=== PATIENT | female | born 1955 | race American Indian/Alaskan Native ===

== ENCOUNTER 2016-08-31 12:04 | Outpatient (CLI) | payer MEDICARE ==
[2016-08-31 12:21] LABS: Hematocrit 35.5 % (30.3-42.9); Hemoglobin 11.7 gm/dl (10.1-14.3); Mean Corpuscular HGB Conc 33 % (30-34); Mean Corpuscular Hemoglobin 27 pg (28-32); Mean Corpuscular Volume 82 fl (79-97); Platelet Count 242 K/mm3 (140-440); Red Blood Count 4.35 M/mm3 (3.65-5.03); Red Cell Distribution Width 14.4 % (13.2-15.2); White Blood Count 3.9 K/mm3 (4.5-11.0)
[2016-08-31 12:38] LABS: Alanine Aminotransferase 14 units/L (7-56); Albumin 4.3 g/dL (3.9-5); Albumin/Globulin Ratio 1.3 %; Anion Gap 17 mmol/L; Blood Urea Nitrogen 23 mg/dL (7-17); Calcium 9.7 mg/dL (8.4-10.2); Carbon Dioxide 27 mmol/L (22-30); Chloride 101.3 mmol/L (98-107); Glucose 80 mg/dL (65-100); Potassium 3.5 mmol/L (3.6-5.0); Sodium 142 mmol/L (137-145); Total Protein 7.6 g/dL (6.3-8.2)
[2016-08-31 13:35] LABS: Alkaline Phosphatase 129 units/L (35-129)
== END 2016-08-31 12:05 | disposition home or self-care (01) ==
LOC: LAB 12:04
PROVIDERS: ATTEND Internal Medicine
DX: J44.9 Chronic obstructive pulmonary disease, unspecified (principal); R94.4 Abnormal results of kidney function studies; I10 Essential (primary) hypertension; E78.4 Other hyperlipidemia
CPT/HCPCS: 36415; 80053; 82570; 84156; 85027

== ENCOUNTER 2016-10-02 16:01 | Emergency (ER) | payer MEDICARE ==
[2016-10-02 16:39] VITALS: BP 113/73
[2016-10-02] MEDS ORDERED: DECADRON IM ONE (17:51)
[2016-10-02] MEDS ORDERED: TORADOL IM ONE (17:51)
--- NOTE | 2016-10-02 17:51 | Emergency Department Report ---
ED Lower Extremity HPI - General Chief Complaint: Extremity Injury, Lower Stated Complaint: PAIN IN LFT FOOT Time Seen by Provider: 10/02/16 17:08 Source: patient Mode of arrival: Ambulatory Limitations: No Limitations - History of Present Illness Initial Comments: Patient here complaining off left foot pain 3 days. She said it's worse in the morning. States patient starts at the heel of her foot and goes to the top of her foot at the bottom. She denies any injury. Denies any swelling or deformity. Denies any fever or chills. Denies any swelling. This is located in her left foot and its 9 out of 10 and feels crampy . Denies taking any medication. Patient has a history of asthma, COPD, migraine headache. Denies any pain or redness to the top of her foot or in her calf. Any history of clots in her lungs or lower extremities. Denies any family history of blood clots. Eyes recent long distance travel or hormone therapy. Denies any nausea or vomiting. Denies any numbness or tingling to extremities. MD Complaint: other (left foot pain) Onset/Timin -: days(s) Injury: Foot: Left (cramping pain) Type of Injury: unknown Place: home Severity: severe Severity scale (0 -10): 9 Improves With: immobilization, rest Worsens With: weight bearing Context: other (none) Associated Symptoms: ambulatory. denies: snap/pop sensation, swelling, numbness Treatments Prior to Arrival: other (none) - Related Data Home Medications Medication Instructions Recorded Confirmed Last Taken Amlodipine Besylate [Norvasc] 10 mg PO DAILY 03/13/13 08/20/14 08/20/14 04:45 Hydrochlorothiazide [HCTZ] 25 mg PO QDAY 03/13/13 08/20/14 08/19/14 Metoprolol [Lopressor TAB] 25 mg PO DAILY 03/13/13 08/20/14 08/20/14 04:45 Albuterol Sulfate [Albuterol 0.63% 3 ml IH QID 11/23/13 08/20/14 08/19/14 NEBS] Aspirin [Aspirin BABY CHEW TAB] 81 mg PO QDAY 08/10/14 08/20/14 08/11/14 Atorvastatin (Nf) [Lipitor (Nf)] 10 mg PO QDAY 08/10/14 08/20/14 08/19/14 Ipratropium [Atrovent] 0.5 mg IH QID 08/10/14 08/20/14 08/13/14 Montelukast [Singulair] 10 mg PO QPM 08/10/14 08/20/14 08/20/14 04:45 Previous Rx's Medication Instructions Recorded Last Taken Type ALBUTEROL Inhaler [ProAir HFA 2 puff IH QID PRN #2 inhalation 03/13/14 08/20/14 04:45 Rx Inhaler] HYDROcodone/APAP 5-325 [Coyote 1 each PO Q6HR PRN #10 tablet 08/11/14 Unknown Rx 5/325] Ketorolac [Toradol] 10 mg PO Q6H PRN #20 tablet 06/15/15 Unknown Rx Methocarbamol [Robaxin TAB] 1,500 mg PO TID PRN #30 tab 06/15/15 Unknown Rx Allergies Allergy/AdvReac Type Severity Reaction Status Date / Time LEONARDO Inhibitors Allergy Swelling Verified 06/15/15 17:20 ED Review of Systems ROS: Stated complaint: PAIN IN LFT FOOT Other details as noted in HPI Comment: All other systems reviewed and negative Constitutional: denies: chills, fever Respiratory: no symptoms reported Cardiovascular: denies: chest pain, palpitations, dyspnea on exertion, orthopnea , edema, syncope Gastrointestinal: denies: abdominal pain, nausea, vomiting, diarrhea Musculoskeletal: arthralgia. denies: back pain, joint swelling, myalgia Skin: denies: rash Neurological: denies: headache, weakness, numbness, paresthesias, confusion, abnormal gait, vertigo ED Past Medical Hx - Past Medical History Previous Medical History?: Yes Hx Hypertension: Yes Hx Headaches / Migraines: Yes (past hx migraines) Hx Asthma: Yes Hx COPD: Yes - Surgical History Past Surgical History?: Yes Additional Surgical History: hysterectomy, bilateral wrist and left knee surgery , left "trigger finger" carpaltunnel, mesh implant for bladder prolapse. - Family History Family history: hypertension - Social History Smoking Status: Never Smoker Substance Use Type: None - Medications Home Medications: Home Medications Medication Instructions Recorded Confirmed Last Taken Type Amlodipine Besylate [Norvasc] 10 mg PO DAILY 03/13/13 08/20/14 08/20/14 04:45 History Hydrochlorothiazide [HCTZ] 25 mg PO QDAY 03/13/13 08/20/14 08/19/14 History Metoprolol [Lopressor TAB] 25 mg PO DAILY 03/13/13 08/20/14 08/20/14 04:45 History Albuterol Sulfate [Albuterol 0.63% 3 ml IH QID 11/23/13 08/20/14 08/19/14 History NEBS] ALBUTEROL Inhaler [ProAir HFA 2 puff IH QID PRN #2 inhalation 03/13/14 08/20/14 08/20/14 04:45 Rx Inhaler] Aspirin [Aspirin BABY CHEW TAB] 81 mg PO QDAY 08/10/14 08/20/14 08/11/14 History Atorvastatin (Nf) [Lipitor (Nf)] 10 mg PO QDAY 08/10/14 08/20/14 08/19/14 History Ipratropium [Atrovent] 0.5 mg IH QID 08/10/14 08/20/14 08/13/14 History Montelukast [Singulair] 10 mg PO QPM 08/10/14 08/20/14 08/20/14 04:45 History HYDROcodone/APAP 5-325 [Coyote 1 each PO Q6HR PRN #10 tablet 08/11/14 08/20/14 Unknown Rx 5/325] Ketorolac [Toradol] 10 mg PO Q6H PRN #20 tablet 06/15/15 Unknown Rx Methocarbamol [Robaxin TAB] 1,500 mg PO TID PRN #30 tab 06/15/15 Unknown Rx ED Physical Exam - General Limitations: No Limitations General appearance: alert, in no apparent distress - Head Head exam: Present: atraumatic, normocephalic, normal inspection - Eye Eye exam: Present: normal appearance, PERRL, EOMI Pupils: Present: normal accommodation - Neck Neck exam: Present: normal inspection, full ROM. Absent: tenderness, meningismus, lymphadenopathy - Respiratory Respiratory exam: Present: normal lung sounds bilaterally. Absent: respiratory distress, chest wall tenderness - Cardiovascular Cardiovascular Exam: Present: regular rate, normal rhythm, normal heart sounds - GI/Abdominal GI/Abdominal exam: Present: soft, normal bowel sounds. Absent: distended, tenderness, guarding, rebound, rigid - Extremities Exam Extremities exam: Present: normal inspection, full ROM, normal capillary refill. Absent: tenderness, pedal edema, joint swelling, calf tenderness - Expanded Lower Extremity Exam Left Hip exam: Present: normal inspection, full ROM, pelvic stability. Absent: tenderness, swelling, abrasion, laceration, ecchymosis, deformity, crepidus, dislocation, erythema, external rotation, internal rotation, shortening Upper Leg exam: Present: normal inspection, full ROM. Absent: tenderness, swelling, abrasion, laceration, ecchymosis, deformity, crepidus, dislocation, erythema Knee exam: Present: normal inspection, full ROM, full knee extension. Absent: tenderness, swelling, abrasion, laceration, ecchymosis, deformity, crepidus, dislocation, erythema, effusion, pain w/ pronation/supination, posterior draw sign, pain/laxity with valgus, pain/laxity with varus Lower Leg exam: Present: normal inspection, full ROM. Absent: tenderness, swelling, abrasion, laceration, ecchymosis, deformity, crepidus, dislocation, erythema, palpable cord, Thiago's sign Ankle exam: Present: normal inspection, full ROM. Absent: tenderness, swelling , abrasion, laceration, ecchymosis, deformity, erythema Foot/Toe exam: Present: normal inspection, full ROM. Absent: swelling, abrasion , laceration, ecchymosis, deformity, crepidus, dislocation, erythema, amputation , puncture wound, foreign body, calcaneal tenderness, tenderness at base of 5th metatarsal, nail avulsion, subungual hematoma Neuro vascular tendon exam: Present: no vascular compromise. Absent: pulse deficit, abnormal cap refill, motor deficit, sensory deficit, tendon deficit, extremity cold to touch, pallor, abnormal 2-point discrimination, decreased fine /light touch, foot drop, peroneal nerve deficit, significant pain with passive ROM of distal joint Gait: Positive: observed and limited by pain - Back Exam Back exam: Present: normal inspection, full ROM. Absent: tenderness, CVA tenderness (R), CVA tenderness (L), muscle spasm, paraspinal tenderness, vertebral tenderness, rash noted - Neurological Exam Neurological exam: Present: alert, oriented X3, normal gait, reflexes normal. Absent: motor sensory deficit - Psychiatric Psychiatric exam: Present: normal affect, normal mood - Skin Skin exam: Present: warm, dry, intact, normal color. Absent: rash ED Course Vital Signs 10/02/16 16:36 Temperature 97.6 F Pulse Rate 77 Respiratory 18 Rate Blood Pressure 113/73 O2 Sat by Pulse 99 Oximetry - Reevaluation(s) Reevaluation #1: 10/02/16 18:30 Patient given Toradol 60 mg IM and Decadron 10 mg IM and emergency room for foot pain ED Lower Extremity MDM - Medical Decision Making ED course: Discussed the patient based on my physical finding she has plantar fasciitis and this is usually worse in the morning. I told her that she needs to place ice to area. I told her that she can freeze bottle of water and when she gets up in the morning and when she of pain she can put it at the bottom of her foot and rolled it across the bottom of foot and this will help to relieve pain. Patient given Decadron 10 mg and Toradol 60 mg IM and emergency room and I told her that she needs to follow-up with foot doctor which she'll be in her discharge instruction paperwork. Understanding the discharge diagnosis and treatment plan and discharged from ER in no acute distress Critical care attestation.: If time is entered above; I have spent that time in minutes in the direct care of this critically ill patient, excluding procedure time. ED Disposition Clinical Impression: Plantar fasciitis of left foot, Arthralgia of left foot Disposition: - TO HOME OR SELFCARE Is pt being admited?: No Does the pt Need Aspirin: No Condition: Stable Instructions: Arthralgia (ED), Plantar Fasciitis (ED) Additional Instructions: Please follow-up with Dr. Cueva foot doctor Please use ice therapy to relieve foot pain Referrals: PRIMARY CARE, [Primary Care Provider] - 3-5 Days REKHA HERNANDEZ DPM [Staff Physician] - 3-5 Days Forms: Work/School Release Form(ED)
== END 2016-10-02 18:42 | disposition home or self-care (01) ==
LOC: ED 16:01
DX: M72.2 Plantar fascial fibromatosis (principal); I10 Essential (primary) hypertension; G43.909 Migraine, unspecified, not intractable, without status migrainosus; J45.909 Unspecified asthma, uncomplicated; J44.9 Chronic obstructive pulmonary disease, unspecified; Z79.82 Long term (current) use of aspirin; Z88.8 Allergy status to other drugs, medicaments and biological substances
CPT/HCPCS: 96372; 99282; J1100; J1885